=== PATIENT | female | born 1965 | race Asian ===

== ENCOUNTER 2025-09-23 06:05 | Day surgery (SDC) | payer MEDICARE, MEDICAID, SELFPAY ==
[2025-09-23] VITALS (10 sets, daily range): BP systolic 138–192; BP diastolic 67–100; PULSE 76–97; RESP 14–21; TEMP 36.6–36.7; O2SAT 96–100; BMI 29.4
== END 2025-09-23 08:30 | disposition home or self-care (01) ==
PROVIDERS: PCP Family Medicine; Referring Provider Surgery; Visit Provider Surgery
PROC: 0DJD8ZZ Inspection of Lower Intestinal Tract, Via Natural or Artificial Opening Endoscopic (ICD-10-PCS; CPT 45378; principal; 2025-09-23 07:30)
DX: K51.40 Inflammatory polyps of colon without complications (principal); K92.89 Other specified diseases of the digestive system; K64.1 Second degree hemorrhoids; K64.4 Residual hemorrhoidal skin tags; R19.5 Other fecal abnormalities; K21.9 Gastro-esophageal reflux disease without esophagitis; I10 Essential (primary) hypertension; Z79.899 Other long term (current) drug therapy
CPT/HCPCS: 45385; A4649; J0360; J1200; J2250; J3010